=== PATIENT | female | born 1990 | race Caucasian/White ===

== ENCOUNTER 2022-09-13 05:07 | Inpatient (IN) | payer BC, SELFPAY ==
[2022-09-13] VITALS (27 sets, daily range): BP systolic 105–129; BP diastolic 57–78; PULSE 57–96; RESP 16; TEMP 36.6–37.1; O2SAT 98; BMI 28.3
[2022-09-13] MEDS: LACTATED RINGERS 1000 ML 1,000 ML 125 ML IV ×2 (06:24→14:31)
[2022-09-13 06:30] LABS: Basophils Absolute Auto 0.02 K/uL (0.00-0.30); Basophils Percent Auto 0.2 % (0.0-3.0); Eosinophils Absolute Auto 0.04 K/uL (0.00-0.50); Eosinophils Percent Auto 0.4 % (0.0-7.0); Hematocrit 34.3 % (33.0-51.0); Hemoglobin* 11.9 gm/dL (12.0-16.0); Immature Granulocytes Abs Auto 0.16 K/uL (0.00-0.30); Immature Granulocytes Pct Auto 1.6 %; Lymphocytes Percent Auto 15.8 % (20-44); Mean Corpuscular HGB Conc 35 gm/dL (32-36); Mean Corpuscular Hemoglobin 32 pg (26-34); Mean Corpuscular Volume 93 fL (80-100); Monocytes Percent Auto 11.8 % (0.0-11.0); Neutrophils Absolute Auto 7.19 K/uL (1.7-7.0); Neutrophils Percent Auto 70.2 % (42.0-72.0); Platelet Count* 186 K/uL (140-440); RDW Coefficient of Variation % 11.9 % (11.5-15.5); Red Blood Count 3.69 m/uL (4.00-5.20); White Blood Count* 10.24 K/uL (4.50-11.00)
[2022-09-13 06:36] LABS: Slide Review Reflex No
[2022-09-13] MEDS: OXYTOCIN 30 unit/500 ML in NS 30 UNIT/500 ML BAG IVPB (06:36)
[2022-09-13 07:55] LABS: SARS PCR* Negative SARS-CoV-2 (Negative)
--- NOTE | 2022-09-13 10:07 | PM.OBHPLI ---
OB - H&P: HPI Labor/Induction History of Present Illness Time Seen by Provider: 09:40 Date Seen: 09/13/22 Chief Complaint: The patient is a 31 year old 4 para 3 at 40 weeks gestation by LMP c/w 11wk US, who presented this morning for scheduled induction due to history shoulder dystocia. Chief complaint: IOL for hx of shoulder dystocia : 4 Para: 3 Date of last menstrual period: 12/07/21 Estimated date of delivery: 09/13/22 Gestational age based on last menstrual period: 40 Indications for induction: other (prior shoulder dystocia) Narrative: Paty Huang is a 31 year old 4 para 3 at 40 weeks gestation by LMP c/w 11wk US, who presented this morning for scheduled induction due to history shoulder dystocia. She has been feeling well. No headaches or vision changes. Good FM. No ctxs, abdominal pain or bleeding. Did well with prior inductions. History of Present Dating criteria: based on LMP care: good care Ultrasounds: normal 1st trimester US and normal mid trimester US Medical complications: none Labs Blood type: A (+) positive Rubella: immune RPR/VDLR: nonreactive GBS status: negative HBsAG: negative Meds Home Medications and Allergies Home Medications Medication Instructions Recorded Confirmed Type ferrous sulfate 324 mg (65 mg 324 mg PO Q1D 09/13/22 09/13/22 History iron) tablet,delayed release Allergies Allergy/AdvReac Type Severity Reaction Status Date / Time No Known Drug Allergies Allergy Verified 09/13/22 05:27 OB - H&P: Exam Physical Exam: Vital signs: Temp Pulse Resp BP Pulse Ox 98.2 F 96 16 111/78 98 09/13/22 08:00 09/13/22 09:56 09/13/22 08:00 09/13/22 09:56 09/13/22 05:44 Constitutional: Constitutional: no acute distress Routine HEENT Exam: Head: Present normal inspection Eye: Present normal appearance ENT: Present mucous membranes moist Routine Respiratory Exam: Respiratory: Present CTA bilaterally Routine Cardiovascular Exam: Cardiovascular: RRR Routine Exam: Perineum Description: Normal Detailed Labor and Delivery Exam: Patient Gravid: Yes Dilation (cm): 3 Effacement (%): 60 Cervix position: posterior Consistency: medium Cervical ripeness score: 7 Fetus (Single): Station: -1 Amniotic Membrane Status: AROM (performed with clear fluid) Amniotic Membrane Fluid Description: Clear Heart Rate Baseline: 140 Monitor Accelerations: Present Monitor Decelerations: None Penitentiary Variability: Moderate (6-25) Routine Neurological Exam: Present alert Routine Psychiatric Exam: Present normal affect OB - Results Labs Labs: Short CBC 09/13/22 Range/Units 06:18 WBC 10.24 (4.50-11.00) K/uL Hgb 11.9 L (12.0-16.0) gm/dL Hct 34.3 (33.0-51.0) % Plt Count 186 (140-440) K/uL OB - Problem Based A/P Additional Plan (1) Term : Status: Acute Plan we have discussed induction and risks vs benefits multiple times in the clinic. She has been induced with her last 2 pregnancies and done well. Various techniques and variability in course reviewed. she did not have any ?'s. Pitocin induction started 6am, AROM just performed around 945am. Continue with pitocin protocol. Known GBS negative
--- NOTE | 2022-09-13 17:21 | PM.OBPNL ---
Subjective Time Seen by Provider: 17:21 Date Seen: 09/13/22 Narrative: pt getting much more uncomfortable and now feeling some pressure with ctxs, resolves b/w ctxs. Objective Vital Signs: Last Vital Signs Temp 98.3 F 09/13/22 16:05 Pulse 69 09/13/22 16:05 Resp 16 09/13/22 16:05 BP 114/65 09/13/22 16:05 Pulse Ox 98 09/13/22 05:44 Pelvic Exam Dilation (cm): 7 Effacement (%): 90 Station: 0 Contractions Monitor mode: External Contraction Frequency: q2min Contraction pattern: Regular Contraction intensity: Strong/Firm Pitocin Rate (mU/min): 14 Assessment Assessment: active labor Station: -1 Heart Rate Baseline: 130 [employer] Variability: Moderate (6-25) Monitor Accelerations: Present Monitor Decelerations: None Plan Plan: continue current
[2022-09-13] MEDS: ONDANSETRON 2 MG/ML inj 4 MG IV (17:51)
[2022-09-13] MEDS: ACETAMINOPHEN 500 MG TABLET 1000 MG PO (18:19)
--- NOTE | 2022-09-13 18:32 | W.PM.VAGDEL1 ---
Procedure Delivery date: 09/13/22 Procedure Done: Global Procedure Details: The patient is a 31 year-old admitted on 09/13/22 at 40 Weeks, 0 Days gestation for induction due to history shoulder dystocia.? Cervical exam on admission was 3.5 cm/70 % effaced/-1 station with membranes intact in vertex presentation.? Contractions were occasional.? heart rate demonstrated baseline 140 bpm with moderate variability, + accelerations, - decelerations; a category 1 tracing.? AROM occurred at 0952 with clear fluid. ? Labor Analgesia:? none ? Pitocin:? Yes ? Labor onset:? 170 ? Complete:? 1756 ? Pushing:? 1756 ? heart tones during second stage were 100-120's, decels with pushing and recovered between. ? At 1803 a viable female delivered in vertex presentation over intact perineum via spontaneous vaginal delivery with nuchal cord x 1 reduced and with 30sec shoulder dyocia. Dystocia maneuvers including Suprapubic pressure, irena, attempted bowie and corkscrew were unsuccessful and then with pt laying back further, posterior arm was able to be removed and as removing was delivered. Infant was placed on bed with no initial cry and cord was clamped and cut and taken straight to warmer. At warmer, dried and stimulated with immediate response and no further resuscitation needed. ? Nose and mouth were bulb suctioned.? Infant weight 10#2oz.? 8 at 1 minute and 9 at 5 minutes.? Shoulder dystocia: yes.? Nuchal cord: yes. ? Placenta delivered spontaneously and complete at 1809 with a 3 vessel cord. Active management of placent was performed. ? Mother and infant were stable after delivery. ? Lacerations:? right periurethral laceration, hemostatic and not requiring repair. ? Blood loss: 50 mL. Blood loss measurement type: QBL ? Sponge and needles counts are correct. Events: Labor Induction Intrapartal Events: Labor Induction Delivery monitor: external FHT Route of delivery: Laceration description: Periurethral - 1st Degree Estimated blood loss (mL): 175 Anesthesia type: None Infant Infant Gender: Female presentation: vertex Placental Delivery Description: Spontaneous Cord Description: 3 Vessels
[2022-09-13] MEDS: IBUPROFEN 600 MG TABLET PO (21:51)
[2022-09-14 01:05] VITALS: BP 101/60; PULSE 74; RESP 16; TEMP 37; O2SAT 97
[2022-09-14] MEDS: ACETAMINOPHEN 500 MG TABLET 1000 MG PO ×2 (01:09→08:26)
[2022-09-14 04:03] VITALS: BP 115/70; PULSE 68; RESP 16; TEMP 36.9; O2SAT 96
[2022-09-14] MEDS: IBUPROFEN 600 MG TABLET PO ×2 (04:09→14:34)
[2022-09-14 07:23] LABS: Hemoglobin* 11.4 gm/dL (12.0-16.0)
[2022-09-14 08:16] VITALS: BP 109/66; PULSE 64; RESP 16; O2SAT 96
[2022-09-14] MEDS: DOCUSATE SODIUM 100 MG CAPSULE PO (08:27)
--- NOTE | 2022-09-14 09:19 | P.DS_ITS ---
DS: Providers Provider Time Seen by Provider: 09:19 Date Seen: 09/14/22 Date of admission: 09/13/22 05:07 Primary care physician: Jenniffer Tineo DO Admitting Clinician: Jenniffer Tineo DO Attending Physician on discharge: Jenniffer Tineo DO Date of Discharge: 09/14/22 DS: Diagnosis Discharge Diagnosis (1) Term : Status: Acute (2) Vaginal delivery: Status: Acute Exam Const: Vital Signs, click to edit/add: Vital Signs - 24 hr 09/13/22 09:56 09/13/22 09:56 09/13/22 11:05 Temperature 98.8 F Pulse Rate 96 89 Pulse Rate [Blood Pressure Cuff] Respiratory Rate 16 Blood Pressure 111/78 128/64 Blood Pressure [Le ft Arm] Pulse Oximetry Oxygen Delivery [facility] 09/13/22 11:05 09/13/22 12:00 09/13/22 12:00 Temperature 98.7 F 98.6 F Pulse Rate 81 Pulse Rate [Blood Pressure Cuff] Respiratory Rate 16 16 Blood Pressure 121/72 Blood Pressure [Le ft Arm] Pulse Oximetry Oxygen Delivery [facility] 09/13/22 12:50 09/13/22 12:50 09/13/22 14:00 Temperature 98.6 F Pulse Rate 85 78 Pulse Rate [Blood Pressure Cuff] Respiratory Rate 16 Blood Pressure 121/67 113/58 L Blood Pressure [Le ft Arm] Pulse Oximetry Oxygen Delivery [facility] 09/13/22 14:00 09/13/22 14:52 09/13/22 14:52 Temperature 98.6 F 98.3 F Pulse Rate 71 Pulse Rate [Blood Pressure Cuff] Respiratory Rate 16 16 Blood Pressure 118/59 L Blood Pressure [Le ft Arm] Pulse Oximetry Oxygen Delivery [facility] 09/13/22 16:05 09/13/22 16:05 09/13/22 18:10 Temperature 98.3 F Pulse Rate 69 78 Pulse Rate [Blood Pressure Cuff] Respiratory Rate 16 Blood Pressure 114/65 116/57 L Blood Pressure [Le ft Arm] Pulse Oximetry Oxygen Delivery [facility] 09/13/22 18:26 09/13/22 18:41 09/13/22 18:56 Temperature Pulse Rate 74 60 Pulse Rate [Blood Pressure Cuff] Respiratory Rate Blood Pressure 118/70 109/62 110/62 Blood Pressure [Le ft Arm] Pulse Oximetry Oxygen Delivery [facility] 09/13/22 18:56 09/13/22 19:11 09/13/22 19:11 Temperature Pulse Rate 57 L 58 L Pulse Rate [Blood Pressure Cuff] Respiratory Rate Blood Pressure 112/62 Blood Pressure [Le ft Arm] Pulse Oximetry Oxygen Delivery [facility] 09/13/22 19:26 09/13/22 19:26 09/13/22 19:41 Temperature Pulse Rate 73 Pulse Rate [Blood Pressure Cuff] Respiratory Rate Blood Pressure 113/71 112/58 L Blood Pressure [Le ft Arm] Pulse Oximetry Oxygen Delivery [facility] 09/13/22 19:41 09/13/22 19:56 09/13/22 19:56 Temperature Pulse Rate 63 78 Pulse Rate [Blood Pressure Cuff] Respiratory Rate Blood Pressure 105/57 L Blood Pressure [Le ft Arm] [facility] 20:11 09/13/22 20:11 09/13/22 20:26 Temperature Pulse Rate 72 Pulse Rate [Blood Pressure Cuff] Respiratory Rate Blood Pressure 111/66 114/68 Blood Pressure [Le ft Arm] Pulse [facility]ximetry [facility]22 20:26 09/13/22 18:10 09/13/22 18:26 Temperature 98.6 F Pulse Rate 68 Pulse Rate [Blood Pressure Cuff] 78 74 Respiratory Rate 16 16 Blood Pressure Blood Pressure [Le ft Arm] 116/57 L 118/70 Pulse [facility]ximetry [facility] 20:10 09/13/22 19:10 09/13/22 19:25 Temperature Pulse Rate Pulse Rate [Blood Pressure Cuff] Respiratory Rate 16 16 16 Blood Pressure Blood Pressure [Le ft Arm] Pulse [facility]ximetry [facility] 09/13/22 19:40 09/13/22 19:55 09/14/22 01:05 Temperature 98.6 F Pulse Rate Pulse Rate [Blood Pressure Cuff] 74 Respiratory Rate 16 16 16 Blood Pressure Blood Pressure [Le ft Arm] 101/60 Pulse Oximetry 97 [facility] 09/14/22 04:03 09/14/22 08:16 Temperature 98.4 F Pulse Rate Pulse Rate [Blood Pressure Cuff] 68 64 Respiratory Rate 16 16 Blood Pressure Blood Pressure [Le ft Arm] 115/70 109/66 Pulse Oximetry 96 96 Oxygen Delivery [facility] Room Air Room Air Documenting provider has reviewed patient's vital signs: yes Common normals: no apparent distress and healthy appearing General appearance: cooperative and comfortable : Uterus: U/U (Firm) Lochia: small OB - DS: Summary Hospital Course Hospital Course: The patient is a 31 year old G 4 P 3 at 40 weeks gestation that was admitted to the Center on 09/13/22 for induction due to hx shoulder dystocia. She had a vaginal delivery complicated by a 30sec shoulder dystocia. She delivered a viable female LGA infant. She is breast feeding. the patient has done well. She has no concerns. Lochia mild. Ambulating, voiding, and eating without problems. She would like to go home at 24 hours Peripartum Data delivery method: Vaginal Laceration description: Periurethral - 1st Degree complications: none Gender: Female Infant Discharge Plan: Home Time Spent with Patient Time attestation: Total time spent providing and/or coordinating discharge services: Discharge Plan Discharge Disposition: Home, Self-Care Date of Admission: 09/13/22 05:07 Primary Care Provider: Jenniffer Tineo Condition: Stable Anticipated Discharge Date/Time: 09/14/22 18:30 Discharge Medications: New acetaminophen 500 mg Tablet 1,000 mg PO Q6H PRNQty: 30 0RF docusate sodium 100 mg Capsule 100 mg PO DAILY Qty: 30 0RF ibuprofen 600 mg Tablet 600 mg PO Q6H PRNQty: 30 0RF cholecalciferol (vitamin D3) [Vitamin D3] 125 mcg (5,000 unit) tablet 125 mcg PO DAILY Qty: 90 3RF Discontinued ferrous sulfate 324 mg (65 mg iron) tablet,delayed release (DR/EC) 324 mg PO Q1D Discharge Orders: Discharge Order (Routine); Ordered 09/14/22 Ordered By: Jenniffer Tineo Patient Education: OB Vaginal/Breast Feeding Activity Level: Activity as Tolerated Activity Detail: Pelvic rest x 6weeks Discharge Diet: Regular Follow Up Appointments: Jenniffer Tineo, [Primary Care Provider] - (Make an appointment for your visit in [address] Tineo will touch base with you at your baby's upcoming visits as well.) Forms: [facility] Info Instructions
[2022-09-14 11:59] VITALS: BP 128/77; PULSE 60; RESP 15; TEMP 36.9
[2022-09-14 16:07] VITALS: BP 95/65; PULSE 64; RESP 15; O2SAT 96
== END 2022-09-14 19:20 | disposition home or self-care (01) | DRG 560 ==
PROVIDERS: Admitting Provider Family Medicine; PCP Family Medicine; Visit Provider Family Medicine
DX: O66.0 Obstructed labor due to shoulder dystocia (principal); Z3A.40 40 weeks gestation of pregnancy; Z37.0 Single live birth; O70.0 First degree perineal laceration during delivery; O36.63X0 Maternal care for excessive fetal growth, third trimester, not applicable or unspecified
CPT/HCPCS: 36415; 85018; 85025; 86850; 86900; 86901; 87635; A9270; J2405; J7120